=== PATIENT | male | born 1975 | race Caucasian/White ===

== ENCOUNTER 2018-11-04 13:16 | Emergency (ER) | payer OTHER ==
[2018-11-04 13:22] VITALS: BP 144/76; PULSE 105; TEMP 98; BMI 31.7
--- NOTE | 2018-11-04 14:26 | PDOC ---
History of Present Illness - General Chief Complaint: Pain, Acute Stated Complaint: LT. FOOT PAIN Time Seen by Provider: 11/04/18 13:27 History Source: Patient Exam Limitations: No Limitations - History of Present Illness Initial Comments: 11/04/18 14:20 HISTORY OF PRESENT ILLNESS: 42-year-old male with history of left nephrectomy who presents emergency department for evaluation of atraumatic left foot pain which started on 11/01. 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 He denies any trauma or awkward twisting of his foot or ankle. Patient reports the pain was accompanied by redness to his left midfoot. Patient has not tried taking any medication but is concerned that he was unable to bear weight this morning without having increase in pain. He denies any fevers, chills, calf pain, recent travel or smoking. No recent travel or sick contacts. PAST MEDICAL HISTORY: Denies past medical history SURGICAL HISTORY: see HPI ALLERGIES: No known drug allergies REVIEW OF SYSTEMS General/Constitutional: Denies fever or chills. Denies weakness, weight change. HEENT: Denies change in vision. Denies ear pain or discharge. Denies sore throat. Cardiovascular: Denies chest pain or shortness of breath. Respiratory: Denies cough, wheezing, or hemoptysis. Gastrointestinal: Denies nausea, vomiting, diarrhea or constipation. Denies rectal bleeding. Genitourinary: Denies dysuria, frequency, or change in urination. Musculoskeletal: see HPI Skin and breasts: Denies rash or easy bruising. Neurologic: Denies headache, vertigo, loss of consciousness, or loss of sensation. Psychiatric: Denies depression or anxiety. Endocrine: Denies increased thirst. Denies abnormal weight change. Hematologic/Lymphatic: Denies anemia, easy bleeding, or history of blood clots. Allergic/Immunologic: Denies hives or skin allergy. Denies latex allergy. PHYSICAL EXAM General Appearance: Well-appearing, appropriately dressed. No apparent distress , no intoxication. Respiratory/Chest: Lungs CTAB. No shortness of breath, chest tenderness, respiratory distress, accessory muscle use. No crackles, rales, rhonchi, stridor , wheezing, dullness Cardiovascular: RRR. S1, S2. No JVD, murmur, bradycardia, tachycardia. Vascular Pulses: Dorsalis-Pedis (R): 2+, Dorsalis-Pedis (L): 2+ Musculoskeletal/Extremities: Normal inspection. FROM of all extremities, normal capillary refill. Full active range of motion of left ankle and foot. No tenderness upon palpation of the bones of the left foot. Erythema presents to the dorsum of the left foot over the proximal aspect of the first metatarsal. Skin temperature is seen bilaterally. Integumentary: Appropriate color, dry, warm. 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 Fully oriented, alert. Appropriate mood/affect. Motor strength 5/5. No appreciable EOM palsy, facial droop or sensory deficit. Past History - Past Medical History Allergies/Adverse Reactions: Allergies Allergy/AdvReac Type Severity Reaction Status Date / Time No Known Allergies Allergy Verified 11/04/18 13:19 Home Medications: Ambulatory Orders Colchicine 0.6 mg PO BID #14 tablet 11/04/18 Naproxen [Naprosyn -] 500 mg PO BID #14 tablet 11/04/18 COPD: No - Immunization History Immunization Up to Date: Yes - Suicide/Smoking/Psychosocial Hx Smoking History: Current some day smoker Information on smoking cessation initiated: No Hx Alcohol Use: No Drug/Substance Use Hx: No *Physical Exam - Vital Signs Last Vital Signs Temp Pulse Resp BP Pulse Ox 98.0 F 105 H 18 144/76 100 11/04/18 13:20 11/04/18 13:20 11/04/18 13:20 11/04/18 13:20 11/04/18 13:20 ED Treatment Course - LABORATORY CBC & Chemistry Diagram: 11/04/18 14:28 11/04/18 14:28 - RADIOLOGY Radiology Studies Ordered: Category Date Time Status FOOT-LEFT [RAD] Stat Radiology 11/04/18 14:11 Ordered Medical Decision Making - Medical Decision Making 11/04/18 14:25 A/P: 42-year-old male with atraumatic pain to left mid foot Erythema present to the mid foot in the dorsum over the proximal aspect of the first metatarsal Full active range of motion No bony tenderness upon palpation Laboratory testing including uric acid X-rays I'll wait for laboratory testing to return before medication as patient has left nephrectomy Reassess 11/04/18 16:05 X-rays as read by me: No acute fractures or dislocations noted. This patient is exhibiting signs of monoarthritis and reports increased alcohol intake combined with a an elevated uric acid level is likely gout. Kidney function is within normal limits in all treat the patient with colchicine and NSAIDs. Give the patient a first dose here and a prescription going forward. Patient will follow-up with his primary doctor in [place] for continued evaluation. I will provide referral for podiatry for continued evaluation. *DC/Admit/Observation/Transfer Diagnosis at time of Disposition: Gout Qualifiers: Gout site: foot Gout etiology: unspecified cause Chronicity: acute Laterality: left Qualified Code(s): M10.9 - Gout, unspecified - Discharge Dispostion Disposition: HOME Condition at time of disposition: Stable Decision to Admit order: No - Prescriptions Prescriptions: Colchicine 0.6 mg PO BID #14 tablet Naproxen [Naprosyn -] 500 mg PO BID #14 tablet - Referrals Referrals: Oswaldo Davison MD [Primary Care Provider] - Bill Ruiz MD [Staff Physician] - Eugenie Rolle DPM [Staff Physician] - Tin Posadas MD [Staff Physician] - - Patient Instructions Additional Instructions: Take colchicine and Naprosyn twice a day for pain relief. You've only been given a 1 week supply of this medication. Follow up with her primary doctor for continued evaluation and potential new prescription. 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 Please follow-up for evaluation. Return to the emergency department for any new or worsening symptoms. Thank you very much for choosing us to provide your emergent health care needs. - Post Discharge Activity Forms/Work/School Notes: Back to Work
[2018-11-04 14:51] LABS: BASO % 0.5 % (0-2.0); EOS % 0.8 % (0-4.5); HEMATOCRIT 45.6 % (35.4-49); HEMOGLOBIN 15.8 GM/dL (11.7-16.9); LYMPH % 23.8 % (8-40); MCHC 34.7 g/dl (32.0-35.9); MEAN CELL VOLUME 86.3 fl (80-96); MEAN PLT VOLUME 9.3 fl (7.5-11.1); MONO % 8.4 % (3.8-10.2); NEUT % 66.5 % (42.8-82.8); PLATELET COUNT 192 K/MM3 (134-434); RBC 5.28 M/mm3 (4.00-5.60); RDW 14.8 % (11.9-15.9); WHITE BLOOD COUNT 9.3 K/mm3 (4.0-10.0)
[2018-11-04 15:02] LABS: ANION GAP 5 MMOL/L (8-16); BLOOD UREA NITROGEN 14 mg/dL (7-18); CALCIUM 9.1 mg/dL (8.5-10.1); CHLORIDE 106 mmol/L (98-107); CO2 28 mmol/L (21-32); CREATININE 1.2 mg/dL (0.55-1.3); GLUCOSE,RANDOM 92 mg/dL (74-106); POTASSIUM 4.2 mmol/L (3.5-5.1); SODIUM 139 mmol/L (136-145); URIC ACID 8.5 mg/dL (2.6-7.2)
[2018-11-04] MEDS ORDERED: COLCHICINE 0.6 MG TABLET (FP) PO ONE (15:53)
[2018-11-04] MEDS ORDERED: NAPROXEN 500 MG TABLET (FP) PO ONE (15:54)
[2018-11-04] MEDS ORDERED: NAPROXEN 500 MG TABLET (FP) ONE (15:58)
[2018-11-04] MEDS ORDERED: COLCHICINE 0.6 MG TABLET (FP) ONE (15:58)
== END 2018-11-04 16:21 | disposition home or self-care (01) ==
LOC: JERFT 13:16
DX: M10.9 Gout, unspecified (principal)
CPT/HCPCS: 36415; 73630-TC-LT; 80048; 84550; 85025; 85651; 99281-25

== ENCOUNTER 2021-10-18 13:40 | Emergency (ER) | payer OTHER ==
[2021-10-18 13:53] VITALS: BP 135/83; PULSE 76; TEMP 97.6; BMI 29.8
[2021-10-18 16:23] LABS: BASO % 0.5 % (0-2.0); EOS % 0.8 % (0-4.5); HEMATOCRIT 48.3 % (35.4-49); HEMOGLOBIN 16.7 GM/dL (11.7-16.9); MCH 29.7 pg (25.7-33.7); MCHC 34.6 g/dl (32.0-35.9); MEAN CELL VOLUME 85.9 fl (80-96); MEAN PLT VOLUME 8.9 fl (7.5-11.1); MONO % 7.2 % (3.8-10.2); NEUT % 67.5 % (42.8-82.8); PLATELET COUNT 211 10^3/uL (134-434); RBC 5.63 M/mm3 (4.00-5.60); RDW 14.1 % (11.9-15.9); WHITE BLOOD COUNT 8.6 K/mm3 (4.0-10.0)
[2021-10-18 16:45] LABS: ALBUMIN 4.1 g/dl (3.4-5.0); BLOOD UREA NITROGEN 16.9 mg/dL (7-18)
[2021-10-18 16:48] LABS: CREATININE 1.3 mg/dL (0.55-1.3)
[2021-10-18 16:49] LABS: BILIRUBIN,TOTAL 0.6 mg/dL (0.2-1); TOT PROT 7.6 g/dl (6.4-8.2)
[2021-10-18] MEDS ORDERED: NAPROXEN 500 MG TABLET PO ONE (17:02)
[2021-10-18] MEDS ORDERED: COLCHICINE 0.6 MG TAB PO ONE (17:02)
[2021-10-18] MEDS ORDERED: NAPROXEN 500 MG TABLET ONE (17:06)
== END 2021-10-18 19:23 | disposition home or self-care (01) ==
LOC: JERFT 13:40
DX: M79.671 Pain in right foot (principal)
CPT/HCPCS: 36415; 73630-TC-RT-FY; 80053; 85025; 99284-25

== ENCOUNTER 2021-12-30 12:26 | Emergency (ER) | payer OTHER ==
[2021-12-30 12:40] VITALS: BP 133/83; PULSE 87; TEMP 97.8; BMI 30.7
[2021-12-30] MEDS ORDERED: KETOROLAC TROMETHAMINE 30 MG/1 ML VIAL IM ONE (13:39)
[2021-12-30] MEDS ORDERED: KETOROLAC TROMETHAMINE 30 MG/1 ML VIAL ONE (13:56)
== END 2021-12-30 16:02 | disposition home or self-care (01) ==
LOC: JERFT 12:26
PROC: 3E0233Z Introduction of Anti-inflammatory into Muscle, Percutaneous Approach (ICD-10-PCS; principal; 2021-12-30)
DX: M79.602 Pain in left arm (principal)
CPT/HCPCS: 73060-TC-LT-FY; 73070-TC-LT-FY; 96372; 99284-25